=== PATIENT | female | born 1955 | race Caucasian/White ===

== ENCOUNTER 2019-08-30 21:04 | Emergency (ER) | payer SELFPAY ==
[~2019-08-30 21:04] MED LIST: Bacitracin 1 PK ONE
[2019-08-30] MEDS ORDERED: Adacel (T-DAP) 0.5 ML SYRINGE ONE (21:40)
[2019-08-30] MEDS ORDERED: Lidocaine 2% PF 5 ML VIAL ONE (21:54)
[2019-08-30] MEDS ORDERED: Amoxicillin/Potassium Clav 875 MG TAB ONE (22:47)
--- NOTE | 2019-08-31 06:29 | RAD ---
LEFT HAND THREE VIEWS: 08/30/2019 FINDINGS: Soft tissue swelling and soft tissue air is seen on the dorsum of the hand. No definite opaque foreig n bodies are seen. An area of slight increased density near the base of the metacarpals on the latera l view is probably just overlap of tissues. No fractures are seen. A linear white density is seen frederick r the thenar region on the lateral view but is not replicated elsewhere so I am not convinced that th is is actually a foreign body. IMPRESSION: Dorsal soft tissue injury. POS: HOME
== END 2019-08-30 22:50 | disposition home or self-care (01) ==
LOC: BURERS 21:04
DX: S61.452A Open bite of left hand, initial encounter (principal); S61.412A Laceration without foreign body of left hand, initial encounter; F32.9 Major depressive disorder, single episode, unspecified; Z79.899 Other long term (current) drug therapy; Z23 Encounter for immunization; W54.0XXA Bitten by dog, initial encounter
CPT/HCPCS: 12001; 90471; 90715; J2001

== ENCOUNTER 2020-05-02 11:44 | Emergency (ER) | payer MEDICARE ==
[2020-05-02] MEDS ORDERED: Lidocaine 1% PF 5 ML VIAL ONE (12:52)
[2020-05-02] MEDS ORDERED: Rabies Vaccine Human 2.5 UNITS VIAL ONE (13:34)
[2020-05-02] MEDS ORDERED: Amoxicillin/Potassium Clav 875 MG TAB ONE (13:54)
== END 2020-05-02 14:25 | disposition home or self-care (01) ==
LOC: BURERS 11:44
DX: S51.851A Open bite of right forearm, initial encounter (principal); W54.0XXA Bitten by dog, initial encounter
CPT/HCPCS: 90375; 90376; 90471; 90675; 96372

== ENCOUNTER 2020-08-07 17:33 | Emergency (ER) | payer MEDICARE ==
[2020-08-07 18:01] LABS: Bilirubin Negative (Negative); Blood, Urine Moderate (Negative); Clarity Cloudy (Clear); Glucose, Urine (Dipstick) Negative (Negative); Ketone, Urine Negative (Negative); Leukocyte Small (Negative); Nitrite Positive (Negative); Protein, Urine (Dipstick) 100 mg/dL (Neg-Trace); Urobilinogen 0.2 mg/dL (Less than 2); pH, Urine 5.5 (5.0-9.0)
[2020-08-07 18:03] LABS: Specific Gravity, Urine 1.037 (1.002-1.036)
[2020-08-07] MEDS ORDERED: Phenazopyridine HCl 97.5 MG TABLET ONE (18:10)
[2020-08-07] MEDS ORDERED: Sulfameth/Trimethoprim DS 800-160mg TAB ONE (18:10)
[2020-08-07 18:31] LABS: Bacteria/HPF 2+ HPF (None Seen); Squamous Epithelial 0-3 HPF (0-3); WBC/HPF 21-50 HPF (0-3)
== END 2020-08-07 18:17 | disposition home or self-care (01) ==
LOC: BURERS 17:33
DX: N39.0 Urinary tract infection, site not specified (principal)
CPT/HCPCS: 81003; 81015; 87077; 87086; 87186; 99283